=== PATIENT | female | born 1980 | race Caucasian/White ===

== ENCOUNTER 2016-12-30 05:20 | Emergency (ER) | payer SELFPAY ==
[~2016-12-30] VITALS: Ht 160 cm; Wt 68.0 kg
[2016-12-30 05:22] VITALS: BP 115/71
--- NOTE | 2016-12-30 05:25 | NUR ---
TO ER BED 5
[2016-12-30] MEDS ORDERED: diphenhydrAMINE 50 MG CAP PO ONE (05:40)
[2016-12-30] MEDS ORDERED: predniSONE 20 MG TAB PO ONE ×3 (05:40)
--- NOTE | 2016-12-30 05:45 | NUR ---
36Y F BIB FAMILY C/O OF HIVES STARTED LAST FRIDAY AND IT GET WORST. PT WITH RED RASH LIKE HIVES ALL OVER HER FACE AND BODY. NO C/O OF THROAT SWELLING OR DIFFICULTY BREATHING. V/S WNL. NO DISTRESS NOTED.
--- NOTE | 2016-12-30 07:07 | NUR ---
Patient discharged with v/s stable. Written and verbal after care instructions given and explained BY DR WHITING. Patient alert, oriented and verbalized understanding of instructions. Ambulatory with steady gait. All questions addressed prior to discharge. ID band removed. Patient advised to follow up with PMD. Rx of PREDNISONE given. Patient educated on indication of medication including possible reaction and side effects. Opportunity to ask questions provided and answered.
[2016-12-30 07:09] VITALS: BP 105/66
== END 2016-12-30 07:08 | disposition home or self-care (01) ==
LOC: MED 05:20
DX: T78.1XXA Other adverse food reactions, not elsewhere classified, initial encounter (principal); T36.0X5A Adverse effect of penicillins, initial encounter; L50.0 Allergic urticaria; J45.909 Unspecified asthma, uncomplicated; X58.XXXA Exposure to other specified factors, initial encounter; Y92.89 Other specified places as the place of occurrence of the external cause
CPT/HCPCS: 99284; J7512; Q0163

== ENCOUNTER 2017-09-14 00:12 | Emergency (ER) | payer SELFPAY ==
[~2017-09-14] VITALS: Ht 160 cm; Wt 61.2 kg
[2017-09-14 00:13] VITALS: BP 152/55
[2017-09-14 00:17] VITALS: BP 152/55
--- NOTE | 2017-09-14 00:19 | NUR ---
PT TAKEN TO BED 3
--- NOTE | 2017-09-14 00:24 | NUR ---
36Y/F PT. PRESENST TO ED WITH C/O SOB. PT. HX.ASTHMA, SOB, NOT RELIEF WITH INHALATION. AAO X4, AMBULATORY WITH STEDAY GAIT. RESPIRATIONS ROOM AIR, EVEN AND UNLABORED, PROPOSAL SPECIALIST.UPPER LUNG WHEEZES. O2 SAT 98%, C/O CHEST TIGHNESS 01/08. VSS, ER MADE AWARE OF PT. STATUS.
--- NOTE | 2017-09-14 01:18 | NUR ---
PATIENT LEFT WITHOUT BEING SEEN BY DR. BROWN. NO FURTHER CARE PROVIDED FOR PATIENT.
== END 2017-09-14 01:18 | disposition left against medical advice (07) ==
LOC: MED 00:12
DX: R06.02 Shortness of breath (principal); Z53.21 Procedure and treatment not carried out due to patient leaving prior to being seen by health care provider

== ENCOUNTER 2018-07-30 21:24 | Emergency (ER) | payer SELFPAY ==
[~2018-07-30] VITALS: Ht 160 cm; Wt 54.4 kg
[2018-07-30 21:27] VITALS: BP 107/63
--- NOTE | 2018-07-30 21:27 | NUR ---
TO BED # 5 AMBULATORY, REPORT GIVEN TO ROMAN KIRKLAND.
--- NOTE | 2018-07-30 21:30 | NUR ---
PATIENT BIB FAMILY C/O LLQ PAIN X 2 DAYS, NON RADIATING, INTERMITTENT, SHARP IN NATURE +NAUSEA, -VOMIT/DIARRHEA. PATIENT GCS 15, AAOX4. PATIENT DENIES ANY DRUG/ETOH USE. PATIENT SR ON CM. PATIENT DENIES ANY CP/SOB. PATIENT BREATHING IS EVEN AND UNLABORED, NO ACUTE DISTRESS NOTED. PATIENT AMBULATED TO BED 5 WITH STEADY GAIT, URINE COLLECTED. WILL CONTINUE TO MONITOR AND AWAIT FOR ORDERS.
[2018-07-30] MEDS ORDERED: MORPHINE SULFATE 4 MG/ML SYR IVP ONE ×2 (22:05→23:50)
[2018-07-30] MEDS ORDERED: NACL 0.9% 1,000 ML IV ONE (22:05)
[2018-07-30] MEDS ORDERED: ONDANSETRON 4 MG/2 ML VIAL IVP ONE (22:05)
--- NOTE | 2018-07-30 22:16 | NUR ---
PATIENT LEFT FOR CT
[2018-07-30 22:38] LABS: BASOPHILS % (AUTO) 0.4 % (0.0-2.0); EOSINOPHILS % (AUTO) 0.7 % (0.0-4.0); HEMATOCRIT 41.8 % (36-48); HEMOGLOBIN 13.9 g/dL (12.0-16.0); LYMPHOCYTES % (AUTO) 18.9 % (20.5-51.1); MEAN CORPUSCULAR HEMOGLOBIN 29 pg (27-31); MEAN CORPUSCULAR HGB CONC 33 g/dL (33-37); MEAN CORPUSCULAR VOLUME 86.4 fL (80-94); MONOCYTES % (AUTO) 9.8 % (1.7-9.3); NEUTROPHILS % (AUTO) 70.2 % (42.2-75.2); PLATELET COUNT (AUTO) 291 K/uL (140-450); RED BLOOD CELL COUNT(AUTO) 4.83 MIL/uL (4.20-5.40); RED CELL DISTRIBUTION WIDTH 13.4 % (11.6-13.7); WHITE BLOOD COUNT (AUTO) 12.8 K/uL (4.8-10.8)
[2018-07-30 22:39] LABS: BASOPHILS # (AUTO) 0.1 K/uL (0.00-0.22); EOSINOPHILS # (AUTO) 0.1 K/uL (0-0.4); LYMPHOCYTES # (AUTO) 2.4 K/uL (2.5-16.5); MONOCYTES # (AUTO) 1.3 K/uL (0.8-1.0)
[2018-07-30 22:44] LABS: APPEARANCE,URINE SL CLOUDY (CLEAR); BLOOD, URINE LARGE (NEGATIVE); COLOR,URINE YELLOW (YELLOW); LEUKOCYTE ESTERASE ,URINE SMALL (NEGATIVE); NITRITE, URINE NEGATIVE (NEGATIVE); UGLUCOSE NEGATIVE (NEGATIVE)
[2018-07-30 22:51] LABS: ANION GAP 11.3 (8-16); CARBON DIOXIDE 28.3 mmol/L (21-32); CREATININE 0.7 mg/dL (0.6-1.3); POTASSIUM 3.6 mmol/L (3.5-5.1)
[2018-07-30 22:51] LABS: BILIRUBIN,URINE SMALL (NEGATIVE); RBC,URINE TOO NUMEROUS TO COUN /HPF (0-5); WBC,URINE 6-15 (FEW) /HPF (0-5)
[2018-07-30 22:52] LABS: TRICHOMONAS,URINE Few /HPF (None Seen)
[2018-07-30 22:54] LABS: ALBUMIN 3.3 g/dL (3.4-5.0); TOTAL BILIRUBIN 2.1 mg/dL (0.0-1.0)
[2018-07-30] MEDS ORDERED: DICYCLOMINE 20 MG/2 ML VIAL IM ONE ×2 (22:55→23:50)
[2018-07-30] MEDS ORDERED: metroNIDAZOLE 500 MG/NS PREMIX 100 ML IV ONE (23:50)
[2018-07-30] MEDS ORDERED: KETOROLAC 30 MG/ML VIAL IVP ONE (23:50)
--- NOTE | 2018-07-31 01:16 | NUR ---
IV removed, catheter intact and site benign. Applied folded 4x4 gauze and tape to stop bleeding.
[2018-07-31 01:17] VITALS: BP 115/76
--- NOTE | 2018-07-31 01:17 | NUR ---
Patient discharged with v/s stable. Written and verbal after care instructions given and explained. Patient alert, oriented and verbalized understanding of instructions. Ambulatory with steady gait. All questions addressed prior to discharge. ID band removed. Patient advised to follow up with PMD. Rx of NORCO, BENTYL, CIPRO, FLAGYL given. Patient educated on indication of medication including possible reaction and side effects. Opportunity to ask questions provided and answered.
== END 2018-07-31 01:17 | disposition home or self-care (01) ==
LOC: MED 21:24
DX: K57.92 Diverticulitis of intestine, part unspecified, without perforation or abscess without bleeding (principal); J45.909 Unspecified asthma, uncomplicated; Z88.0 Allergy status to penicillin
CPT/HCPCS: 36415; 74176; 80053; 81001; 81025; 83690; 85025; 87086; 96365; 96372; 96375; 96376; 99284; J0500; J1885; J2270; J2405; J3490; J7030

== ENCOUNTER 2018-08-05 11:27 | Inpatient (IN) | payer MEDICAID ==
[~2018-08-05] VITALS: Ht 160 cm; Wt 54.4 kg
[2018-08-05 11:36] VITALS: BP 140/67
--- NOTE | 2018-08-05 11:46 | NUR ---
PATIENT PRESENTS TO ED WITH SHARP LLQ PAIN X 1 WEEK. PT STATES SHE WAS SEEN HERE ON 07/30/18 FOR THE SAME PAIN, SHE WAS GIVEN CIPRO AND A PAIN MEDICINE. STATES SHE HAS BEEN TAKING CIPRO BUT HAS NOT BEEN TAKING THE PAIN MEDICINE. DENIES N/V/D; SKIN IS PINK/WARM/DRY; AAOX4 WITH EVEN AND STEADY GAIT; LUNGS CLEAR BL; HR EVEN AND REGULAR; PT DENIES ANY FEVER, CP, SOB, OR COUGH AT THIS TIME; PATIENT STATES PAIN OF 10/10 AT THIS TIME; VSS; PATIENT POSITIONED FOR COMFORT; HOB ELEVATED; BEDRAILS UP X2; BED DOWN. ER MD MADE AWARE OF PT STATUS.
[2018-08-05] MEDS ORDERED: NACL 0.9% 1,000 ML IV SCH (12:19)
[2018-08-05] MEDS ORDERED: LEVOFLOXACIN 500 MG/D5W PREMIX 100 ML IV ONE (12:20)
[2018-08-05] MEDS ORDERED: metroNIDAZOLE 500 MG/NS PREMIX 100 ML IV ONE (12:20)
[2018-08-05] MEDS ORDERED: MORPHINE SULFATE 4 MG/ML SYR IVP ONE (12:20)
[2018-08-05] MEDS ORDERED: ONDANSETRON 4 MG/2 ML VIAL IVP ONE (12:20)
--- NOTE | 2018-08-05 12:45 | NUR ---
NO STATED NEEDS AT THIS TIME.
[2018-08-05 12:57] LABS: BASOPHILS % (AUTO) 0.5 % (0.0-2.0); EOSINOPHILS # (AUTO) 0.1 K/uL (0-0.4); EOSINOPHILS % (AUTO) 1.1 % (0.0-4.0); LYMPHOCYTES % (AUTO) 22.7 % (20.5-51.1); MEAN CORPUSCULAR HEMOGLOBIN 29 pg (27-31); MEAN CORPUSCULAR HGB CONC 33 g/dL (33-37); MEAN CORPUSCULAR VOLUME 86.6 fL (80-94); MONOCYTES # (AUTO) 0.6 K/uL (0.8-1.0); MONOCYTES % (AUTO) 7.4 % (1.7-9.3); NEUTROPHILS % (AUTO) 68.3 % (42.2-75.2); PLATELET COUNT (AUTO) 354 K/uL (140-450); RED CELL DISTRIBUTION WIDTH 13.6 % (11.6-13.7); WHITE BLOOD COUNT (AUTO) 8.8 K/uL (4.8-10.8)
[2018-08-05 13:10] LABS: ALBUMIN 3.2 g/dL (3.4-5.0); ANION GAP 12.8 (8-16); CARBON DIOXIDE 27.9 mmol/L (21-32); CREATININE 0.6 mg/dL (0.6-1.3); POTASSIUM 3.7 mmol/L (3.5-5.1); PROTHROMBIN TIME 10.3 secs (10.8-13.4); TOTAL BILIRUBIN 0.6 mg/dL (0.0-1.0)
[2018-08-05] MEDS: DEXT 5% / NACL 0.45% 1,000 ML IV SCH (13:52)
[2018-08-05] MEDS ORDERED: DOCUSATE SODIUM 100 MG GELCAP PO PRN (13:55)
[2018-08-05] MEDS ORDERED: ACETAMINOPHEN 325 MG TAB PO PRN (13:55)
[2018-08-05] MEDS ORDERED: ONDANSETRON 4 MG/2 ML VIAL IM/IVP PRN (13:55)
[2018-08-05] MEDS ORDERED: HYDROcodone/APAP 5/325 MG 1 TAB TAB PO PRN (13:55)
--- NOTE | 2018-08-05 14:00 | NUR ---
PATIENT RESTING IN BED.
[2018-08-05 14:12] LABS: BILIRUBIN,URINE SMALL (NEGATIVE); BLOOD, URINE MODERATE (NEGATIVE); LEUKOCYTE ESTERASE ,URINE NEGATIVE (NEGATIVE); NITRITE, URINE NEGATIVE (NEGATIVE); UGLUCOSE NEGATIVE (NEGATIVE)
[2018-08-05 14:13] LABS: APPEARANCE,URINE CLOUDY (CLEAR); COLOR,URINE STRAW (YELLOW)
[2018-08-05 14:29] LABS: BARBITURATE, URINE NEG. ng/ml (NEG <=200); BENZODIAZEPINE, URINE NEG. ng/mL (NEG <=200); CANNABINOID, URINE POS. ng/mL (NEG <=50); COCAINE, URINE NEG. ng/mL (NEG <=300); OPIATE, URINE NEG. ng/mL (NEG <=2000); PHENCYCLIDINE SCREEN,URINE NEG. ng/mL (NEG <=25)
[2018-08-05 14:38] LABS: MAGNESIUM 1.8 mg/dL (1.8-2.4); PHOSPHORUS 3.4 mg/dL (2.5-4.9); THYROID STIMULATING HORMONE 0.98 uIU/mL (0.34-3.74)
[2018-08-05 15:30] VITALS: BP 111/58
--- NOTE | 2018-08-05 15:30 | NUR ---
PATIENT WAS TRANSFERRED FROM ER. REPORT WAS GIVEN AT BEDSIDE. PATIENT AMBULATED TO BED, STEADY GAIT. VS WAS TAKEN. MRSA WAS SWABBED. PATIENT WAS AWAKE, ALERT. RESPIRATION EVEN, UNLABOR ON ROOM AIR. SKIN DRY AND WARM. IV PATENT AND INTACT. COMPLAINED OF LLQ PAIN 8/10, SQUEEZING, WILL MEDICATE PER ORDER. PATIENT WAS ORIENTED TO ROOM, STAFF, AND CALL LIGHT. PLAN OF CARE WAS DISCUSSED WITH PATIENT. BED AT LOW POSITION, SIDE RAILS UP. CALL LIGHT WITHIN REACH.
--- NOTE | 2018-08-05 15:51 | NUR ---
Patient will be admitted to care of DR KAPOOR. Admited to MED SURG. Will go to room 111-A. Belongings list completed. Report to SUPPLIES PACKER.
[2018-08-05] MEDS: MORPHINE SULFATE 2 MG/ML SYR IVP PRN ×2 (16:19→20:25)
--- NOTE | 2018-08-05 17:14 | NUR ---
PATIENT RESTING IN BED, FAMILY AT BEDSIDE. WILL CONTINUE TO MONITOR.
--- NOTE | 2018-08-05 19:24 | NUR ---
PATIENT AMBULATE TO THE BATHROOM, NOT IN ANY DISTRESS NOTED. ENDORSED TO THE NEXT SHIFT FOR CONTINUITY OF CARE.
--- NOTE | 2018-08-05 19:25 | NUR ---
RECEIVED REPORT FROM DAY SHIFT MANAGER [employer]ER[employer] JOWIE, FOR CONTINUITY OF CARE. PT IS A/OX4, ON ROOM AIR. PT AMBULATES WITH STEADY GAIT, AND SKIN IS PINK/WARM/DRY AND INTACT. PT IS ABLE TO MAKE NEEDS KNOWN, AND ABLE TO FOLLOW COMMANDS. LUNGS SOUNDS DIMINISHED, HR EVEN AND REGULAR. PT HAS 20G IV TO LEFT AC, ASYMPTOMATIC AND INTACT. PT DENIES ANY PAIN AT THIS TIME. VITAL SIGNS STABLE. NO SIGNS OF DISTRESS NOTED. PT POSITIONED FOR COMFORT. BED RAILS UP X2, BED IN LOWEST POSITION. CALL LIGHT WITHIN REACH. WILL CONTINUE TO MONITOR.
[2018-08-05] MEDS ORDERED: ALBUTEROL SULFATE/IPRATROPIU 3 ML SOL IH PRN (20:20)
[2018-08-05] MEDS: metroNIDAZOLE 500 MG/NS PREMIX 100 ML IV SCH (20:26)
--- NOTE | 2018-08-05 20:26 | NUR ---
EXPLAINED AND ADMINISTERED SCHEDULED MEDICATION AND MORPHINE FOR ABDOMINAL PAIN 04/10. PT TOLERATED WELL.
--- NOTE | 2018-08-05 22:22 | NUR ---
ASSESSED PATIENT WHO WAS AWAKE AND ALERT. PATIENT ON ROOM AIR SPO2 98 AND HEART RATE 68. PATIENT CONFIRMED HISTORY OF ASTHMA AND STATES THAT SHE HAS A RESCUE INHALER AND NEBULIZER TREATMENTS AT HOME BUT ONLY USES PRN. STATES SHE HAS HAD NO ISSUES WITH ASTHMA. PATIENT CONFIRMED SHE DOES NOT FEEL SOB OR ANY DISTRESS BUT SHE IS JUST IN PAIN. ADVISED PATIENT OF PRN ORDERS IF NEEDED.
[2018-08-05] MEDS ORDERED: cefTRIAXone 1,000 MG VIAL ONE (23:11)
--- NOTE | 2018-08-05 23:22 | NUR ---
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 SHE STATES SHE WILL COME BACK ON FRIDAY WHEN THEY DON'T HAVE TO GO TO WORK AND SOMEONE CAN SIT FOR HER CHILDREN. Addendum: 08/05/18 at 0929 by Lidya Seaman RN [facility] PTCRISTOFER.
[2018-08-06] VITALS: BP 104/48
[2018-08-06] MEDS: MORPHINE SULFATE 2 MG/ML SYR IVP PRN ×2 (00:22→04:16)
[2018-08-06] MEDS: DEXT 5% / NACL 0.45% 1,000 ML IV SCH (02:22)
--- NOTE | 2018-08-06 05:20 | NUR ---
PT C/O PAIN AND SAYS MORPHINE I GAVE 1HR AGO DID NOT WORK AT ALL AND SHE WANTS TO LEAVE AND GO HOME NOW. I TOLD PT I WOULD SPEAK TO DR TO SEE IF SHE CAN HAVE ANOTHER PAIN MEDICATION, PT SAID "NO I WANT TO GO HOME NOW." SPOKE TO DR MALDONADO AND DR MALDONADO SAID SHE'S WITHIN HER RIGHT TO LEAVE IF SHE SIGNS AMA FORM.
[2018-08-06] MEDS: metroNIDAZOLE 500 MG/NS PREMIX 100 ML IV SCH (05:25)
--- NOTE | 2018-08-06 05:43 | NUR ---
IV WAS PULLED OUT, CATHETER IS INTACT, PT GOT DRESSED AND IS READY TO LEAVE.
--- NOTE | 2018-08-06 05:44 | NUR ---
PT LEFT UNIT WITH ALL PERSONAL BELONGINGS.
[2018-08-06] MEDS ORDERED: PANTOPRAZOLE 40 MG INJ VIAL IVP SCH (09:00)
== END 2018-08-06 05:45 | disposition left against medical advice (07) | DRG 244 ==
LOC: MED 11:27 → MTU 13:58
PROVIDERS: ADMIT General Practice; ATTEND General Practice
DX: K57.32 Diverticulitis of large intestine without perforation or abscess without bleeding (principal); E44.0 Moderate protein-calorie malnutrition; J45.909 Unspecified asthma, uncomplicated; E86.0 Dehydration; F12.90 Cannabis use, unspecified, uncomplicated; Z88.2 Allergy status to sulfonamides; Z88.0 Allergy status to penicillin; Z91.013 Allergy to seafood; Z98.51 Tubal ligation status; Z83.3 Family history of diabetes mellitus; Z82.49 Family history of ischemic heart disease and other diseases of the circulatory system; Z71.6 Tobacco abuse counseling; Z68.21 Body mass index [BMI] 21.0-21.9, adult; Z53.21 Procedure and treatment not carried out due to patient leaving prior to being seen by health care provider
CPT/HCPCS: 36415; 71045; 80053; 80305; 81003; 83036; 83605; 83690; 83735; 84100; 84443; 85025; 85610; 85730; 87040; 87081; 87086; 96365; 96367; 96375; 99285; J0696; J1956; J2270; J2405; J3490; J7042; J7060; Q0092

== ENCOUNTER 2022-12-26 22:39 | Emergency (ER) | payer SELFPAY ==
[~2022-12-26] VITALS: Ht 160 cm; Wt 63.5 kg
[~2022-12-26 22:39] MED LIST: ALBU0.0965 INH
[2022-12-26 22:53] VITALS: BP 109/74
--- NOTE | 2022-12-26 22:58 | NUR ---
TO LOBBY FOLLOWING TRIAGE
[2022-12-26] MEDS ORDERED: methylPREDNISolone SS 125 MG in WATER STERILE 2 ML IM ONE (23:45)
[2022-12-26] MEDS ORDERED: ceFAZolin 1,000 MG VIAL IM ONE (23:45)
[2022-12-26] MEDS ORDERED: METH4TAB1 PO (23:47)
[2022-12-26] MEDS ORDERED: CEPH-588 PO (23:47)
[2022-12-26] MEDS ORDERED: CALA180L19 TP (23:50)
[2022-12-26] MEDS ORDERED: WATER STERILE 10 ML MC ONE (23:50)
[2022-12-26] MEDS ORDERED: methylPREDNISolone SS 125 MG/2 ML VIAL ONE (23:51)
[2022-12-26 23:53] VITALS: BP 109/74
--- NOTE | 2022-12-26 23:53 | NUR ---
DC BY . PRESCRIBED KEFLEX AND MEDROL
== END 2022-12-26 23:53 | disposition home or self-care (01) ==
LOC: MED 22:39
DX: L30.9 Dermatitis, unspecified (principal); J45.909 Unspecified asthma, uncomplicated; Z87.448 Personal history of other diseases of urinary system; Z79.899 Other long term (current) drug therapy; Z79.2 Long term (current) use of antibiotics; Z88.2 Allergy status to sulfonamides; Z88.0 Allergy status to penicillin; Z88.8 Allergy status to other drugs, medicaments and biological substances; Z91.013 Allergy to seafood
CPT/HCPCS: 96372; 99284; J0690; J2930

== ENCOUNTER 2023-01-06 15:25 | Emergency (ER) | payer SELFPAY ==
[~2023-01-06] VITALS: Ht 162.6 cm; Wt 63.5 kg
[~2023-01-06 15:25] MED LIST changes: +CALA180L19 TP; +CEPH-588 PO; +METH4TAB1 PO
[2023-01-06 15:42] VITALS: BP 135/75
[2023-01-06] MEDS ORDERED: IBUP-2213 PO (16:16)
--- NOTE | 2023-01-06 16:46 | NUR ---
AMB. TO BED W NO DISTRESS.
== END 2023-01-06 16:57 | disposition home or self-care (01) ==
LOC: MED 15:25
DX: S27.818A Other injury of esophagus (thoracic part), initial encounter (principal); J45.909 Unspecified asthma, uncomplicated; N18.9 Chronic kidney disease, unspecified; Z88.2 Allergy status to sulfonamides; Z91.040 Latex allergy status; Z79.899 Other long term (current) drug therapy; X58.XXXA Exposure to other specified factors, initial encounter; Y93.89 Activity, other specified; Y92.89 Other specified places as the place of occurrence of the external cause; Y99.8 Other external cause status
CPT/HCPCS: 70360; 99283

== ENCOUNTER 2024-06-10 16:33 | Emergency (ER) | payer MEDICAID ==
[~2024-06-10] VITALS: Ht 160 cm; Wt 74.8 kg
[~2024-06-10 16:33] MED LIST changes: +IBUP-2213 PO
[2024-06-10 16:38] VITALS: BP 149/74; PULSE 79; RESP 18; TEMP 98; O2SAT 98
[2024-06-10] MEDS: CYCLOBENZAPRINE 10 MG TAB PO ONE (18:14)
[2024-06-10] MEDS: MORPHINE SULFATE 4 MG/ML SYR IM ONE (18:14)
[2024-06-10] MEDS ORDERED: CYCL-711 PO (18:32)
[2024-06-10] MEDS ORDERED: IBUP-2213 PO (18:32)
[2024-06-10] MEDS ORDERED: ACET-8905 PO (18:32)
[2024-06-10 18:56] VITALS: PULSE 74; RESP 15; O2SAT 96
== END 2024-06-10 18:57 | disposition home or self-care (01) ==
LOC: MED 16:33
DX: R25.2 Cramp and spasm (principal); J45.909 Unspecified asthma, uncomplicated; Z87.448 Personal history of other diseases of urinary system; Z79.899 Other long term (current) drug therapy; Z88.2 Allergy status to sulfonamides; Z88.8 Allergy status to other drugs, medicaments and biological substances; Z88.0 Allergy status to penicillin
CPT/HCPCS: 96372; 99283; J2270